=== PATIENT | female | born 1940 | race Caucasian/White ===

== ENCOUNTER 2017-05-05 06:15 | Day surgery (SDC) | payer MEDICARE ==
--- NOTE | 2017-04-27 10:13 | HP ---
CC: Dr. Katy Lantigua * HISTORY AND PHYSICAL: DATE OF PLANNED ADMISSION AND SURGERY: 05/05/17 HISTORY OF PRESENT ILLNESS: Ms. Drew is a 76-year-old white female who is admitted with left ureteral obstruction, status post placement of left ureteral stent for cystoscopy, left retrograde pyelography, and left ureteral stent exchange. Ms. Drew had surgery for abdominal aortic aneurysm and peripheral vascular disease with endovascular placement of an aortic stent and left aortofemoral bypass. She did well from her surgery. 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 She had placement of a left ureteral stent in November 2015 with balloon dilation of the stricture. Following the stent removal, the hydronephrosis caused by the ureteral obstruction recurred and she had another balloon dilation and stent placement about 1 year ago. Following the balloon dilations, the stricture had persisted and the patient had been managed with chronic stent drainage. The stent was last replaced in July 2016 with a 24 cm, 8.5 Bruneian black silicone stent. The patient has done very well and has had no urinary tract infections and has been totally asymptomatic from her stent. Recent renal ultrasound showed no hydronephrosis and the stent in good position. Her recent urine analysis was negative, the urine culture is pending. Her serum creatinine has been stable in the vicinity of 1.7. The patient now is being admitted for elective cystoscopy and left ureteral stent exchange. PAST MEDICAL HISTORY AND SYSTEM REVIEW: She has peripheral vascular disease. She has hypothyroidism, on replacement. She is on metoprolol 25 mg daily and chlorthalidone 25 mg daily. She is diabetic, on glipizide 5 mg daily. She has hyperlipidemia on simvastatin 80 mg daily. She has also a history of osteoporosis and takes alendronate weekly. ALLERGIES: She reports having reaction to OXYCODONE. PHYSICAL EXAMINATION GENERAL: She is a pleasant and rather healthy looking white female. VITAL SIGNS: Blood pressure 110/76, pulse of 70. LUNGS: Clear. HEART: Regular and rhythmic, no murmurs. ABDOMEN: Soft, no masses, no tenderness, and no CVA tenderness. 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 PLAN/RECOMMENDATIONS: Plan is for cystoscopy, left retrograde pyelography, and left ureteral stent exchange. I discussed the above plans with the patient and all her questions were answered. [id number]/[facility] #: [id number] [place]
[~2017-05-05 06:15] MED LIST: Buffered Lidocaine 0.9% SYRIN* 5 ML/SYR SYRINGE INTRADERM ONE; Famotidine IV* 10 MG/ML 2 ML (20 mg) IV ONE; Metoclopramide IV* 5 MG/ML 2 ML VIAL IV SLOW PU ONE; Sodium Citrate/Citric Acid* 15 ML UDC PO ONE
[2017-05-05] MEDS ORDERED: Dexamethasone IV* 4 MG/ML 1 ML (4 MG) IV SLOW PU ONE (06:19)
[2017-05-05] MEDS ORDERED: Metoclopramide IV* 5 MG/ML 2 ML VIAL ONE (06:22)
[2017-05-05] MEDS ORDERED: Sodium Citrate/Citric Acid* 15 ML UDC ONE (06:22)
[2017-05-05] MEDS ORDERED: Dexamethasone IV* 4 MG/ML 1 ML (4 MG) ONE (06:22)
[2017-05-05] MEDS ORDERED: Buffered Lidocaine 0.9% SYRIN* 5 ML/SYR SYRINGE ONE (06:22)
[2017-05-05] MEDS ORDERED: Famotidine IV* 10 MG/ML 2 ML (20 mg) ONE (06:22)
[2017-05-05] MEDS ORDERED: cefTRIAXone VIAL(*) 1,000 MG in NS 0.9% 50 ML* 50 ML IVPB ONE (07:00)
[2017-05-05] MEDS ORDERED: Iohexol 180 (CONTRAST) 10 ML SDV IV ONE (07:09)
[2017-05-05] MEDS ORDERED: Ondansetron INJ* 2 MG/ML VIAL IV PRN (07:36)
[2017-05-05] MEDS ORDERED: fentaNYL* 50 MCG/ML 2 ML VIAL (100 MCG VIAL) IV PRN (07:36)
[2017-05-05] MEDS ORDERED: Chloroprocaine 2%* 20 ML VIAL ONE ×2 (07:42→08:11)
[2017-05-05] MEDS ORDERED: Midazolam* 1 MG/ML 5 ML VIAL (5 MG) ONE (07:42)
[2017-05-05] MEDS ORDERED: EPHEDrine (Pressors)* 50 MG/ML VIAL ONE (08:11)
[2017-05-05] MEDS ORDERED: Phenylephrine IV* 40 MCG/ML 10 ML SYRINGE ONE (08:11)
[2017-05-05 11:11] VITALS: BP 122/57
--- NOTE | 2017-05-05 12:50 | OP ---
CC: Dr. Katy Lantigua * DATE OF OPERATION: 05/05/17 - [facility] DATE OF : 40 SURGEON: Rob Villafana MD ANESTHESIOLOGIST: Dr. Hu Greenwood. ANESTHESIA: Spinal. PRE-OP DIAGNOSES: 1. Left ureteral stricture. 2. Status post placement left ureteral stent. POST-OP DIAGNOSES: 1. Left ureteral stricture. 2. Status post placement left ureteral stent. OPERATIVE PROCEDURES: 1. Cystoscopy. 2. Left retrograde pyelography. 3. Left ureteral stent exchange (black silicon, 8.5 Zimbabwean, 24 cm long). INDICATION FOR PROCEDURE: Mrs. Drew is a 76-year-old white female who developed a stricture of the proximal left ureter secondary to retroperitoneal fibrosis following vascular procedure on the aorta. The stricture was balloon dilated; however, it recurred and she has been managed with chronic ureteral stent. The stent was last replaced about 9 months ago. She has been doing well and recent ultrasound showed no hydronephrosis. The patient is admitted for left ureteral stent exchange. PATHOLOGY: At cystoscopy, the bladder mucosa looked normal. The distal limb of the stent was seen coming from the left orifice. There was slight hyperemia of the bladder mucosa adjacent to the stent. Upon left retrograde pyelography, there was mild fullness of the calyces. DESCRIPTION OF PROCEDURE: After successful spinal anesthesia, the patient was placed in the lithotomy position and was prepped and draped for cystoscopy. Cystoscopy was performed. The bladder was inspected and the above findings were noted. The distal limb of the stent was pulled out to the level of the urethral meatus. A flexible tip guidewire was then passed through the lumen of the stent and positioned in the area of the renal pelvis. The stent was then removed keeping the guidewire in place. Retrograde pyelography was then performed. A black silicon stent, 24 cm long, 8.5 Zimbabwean, was then fed over the guidewire and positioned with the proximal end coiling in the renal pelvis and the distal end coiling inside the bladder. There was good drainage of contrast from the kidney and no extravasation. Patient tolerated the procedure well and left the operating room in good condition. [id number]/[facility] #: [id number] MTDD
--- NOTE | 2017-05-05 18:02 | RAD ---
INDICATION: Left retrograde evaluation stent insertion COMPARISON: None FINDINGS: 0.1 minutes of fluoroscopy were provided for the urology department. Fluoroscopic spot imaging of the abdomen were obtained for operative control and show a retrograde examination correlating placement of a left ureteral stent in expected position . CPT II Codes: 6045F (fluoro time doc)
== END 2017-05-05 11:12 | disposition home or self-care (01) ==
LOC: OR 06:15
PROVIDERS: ATTEND Urology
DX: Z46.6 Encounter for fitting and adjustment of urinary device (principal); N13.5 Crossing vessel and stricture of ureter without hydronephrosis; E11.51 Type 2 diabetes mellitus with diabetic peripheral angiopathy without gangrene; Z79.84 Long term (current) use of oral hypoglycemic drugs; E03.9 Hypothyroidism, unspecified; E78.5 Hyperlipidemia, unspecified; M81.0 Age-related osteoporosis without current pathological fracture; Z88.5 Allergy status to narcotic agent; I10 Essential (primary) hypertension; I25.2 Old myocardial infarction; Z87.891 Personal history of nicotine dependence; E66.9 Obesity, unspecified
CPT/HCPCS: 74420; A9270-GY; C1876; J0696; J1100; J2250; J2400; J2765

== ENCOUNTER → 2017-11-05 08:56 | Day surgery (SDC) | payer MEDICARE ==
--- NOTE | 2017-10-28 07:41 | HP ---
CC: Katy Lantigua MD * HISTORY AND PHYSICAL: DATE OF PLANNED ADMISSION AND SURGERY: 11/05/17 HISTORY OF PRESENT ILLNESS: Ms. Drew is a 77-year-old white female who has chronic left ureteral obstruction, managed with chronic left ureteral stent who is now admitted for cystoscopy and left ureteral stent exchange. Ms. Drew had an abdominal aortic aneurysm and peripheral vascular disease. Following endovascular replacement of an aortic stent, she developed retroperitoneal fibrosis that resulted in obstruction of the proximal left ureter. This resulted in left hydronephrosis and partial atrophy of the left kidney. In November 2015, she underwent cystoscopy, left retrograde, and balloon dilation of the left ureteral stricture and placement of left ureteral stent. The stent was removed 6 weeks later; however, the hydronephrosis recurred and she required placement of another stent. The stent has been replaced periodically about every 6 to 9 months. The stent was last replaced in April 2017. The stent has been well tolerated with no flank pain, no irritative bladder symptoms, no hematuria and no urinary tract infections. The patient is now admitted for left ureteral stent exchange. PAST MEDICAL HISTORY AND SYSTEM REVIEW: She has peripheral vascular disease. She has hypothyroidism, on replacement. She is on one regular aspirin per day. She is hypertensive, on chlorthalidone at 25 mg daily and on potassium chloride supplement and on Toprol 25 mg daily. She has hyperlipidemia, on Zocor 80 mg daily. She is diabetic, on Glucotrol 5 mg daily. ALLERGIES: She reports having intolerance to OXYCODONE. PHYSICAL EXAMINATION GENERAL: A pleasant and healthy looking white female. VITAL SIGNS: Blood pressure 110/70, pulse of 70. LUNGS: Clear. HEART: Regular and rhythmic. No murmurs. ABDOMEN: Soft. No masses, no tenderness. No CVA tenderness. IMPRESSION: Left ureteral stricture secondary to retroperitoneal disease from aortic vascular disease, managed with chronic left ureteral stent. PLAN: Cystoscopy and left ureteral stent exchange. I discussed above plans with the patient and all her questions were answered. [id number]/[facility] #: [id number] MTDD
[~2017-11-05 08:56] MED LIST changes: +Buffered Lidocaine 0.9% SYRIN* 5 ML/SYR SYRINGE ONE; +Dexamethasone IV* 4 MG/ML 1 ML (4 MG) ONE; +Famotidine IV* 10 MG/ML 2 ML (20 mg) ONE; +Iohexol 180 (CONTRAST) 10 ML SDV IV ONE; +KETAMINE HCL* 50 MG/ML 10 ML VIAL ONE; +Lidocaine 2% PF * 5 ML VIAL ONE; -Metoclopramide IV* 5 MG/ML 2 ML VIAL IV SLOW PU ONE; +Metoclopramide TAB* 10 MG ONE; +Metoclopramide TAB* 10 MG PO ONE; +Midazolam* 1 MG/ML 10 ML VIAL (10 MG) ONE; +Naloxone* 0.4 MG/ML 1 ML VIAL IV PRN; +Ondansetron INJ* 2 MG/ML VIAL IV PRN; +Ondansetron INJ* 2 MG/ML VIAL ONE; +Propofol* 10 MG/ML 20 ML BTL IV PUSH ONE; -Sodium Citrate/Citric Acid* 15 ML UDC PO ONE; +cefTRIAXone(*) 1 GM ADVAN/BAG ONE; +cefTRIAXone(*) 1 GM in D5W 50 ML BAG* 50 ML IVPB ONE; +fentaNYL* 50 MCG/ML 2 ML VIAL (100 MCG VIAL) IV PRN; +fentaNYL* 50 MCG/ML 2 ML VIAL (100 MCG VIAL) ONE
[2017-11-05 11:53] VITALS: BP 130/64
--- NOTE | 2017-11-05 12:15 | RAD ---
INDICATION: Left ureteral stent exchange. COMPARISON: Correlation is made with a prior study from May 05, 2017. TECHNIQUE: 10 seconds of intermittent fluoroscopic guidance were provided and 4 spot films of the abdomen were centered on the left side. FINDINGS: There is partial opacification of the left renal collecting system. Subsequently there is placement of a double-J stent catheter on the left side which demonstrates normal course. IMPRESSION: INTRAOPERATIVE CONTROL FILMS. CPT II Codes: 6045F
--- NOTE | 2017-11-06 02:11 | OP ---
CC: Dr. Katy Lantigua OPERATIVE REPORT: DATE OF OPERATION: 11/05/17 DATE OF : 40 SURGEON: Rob Villafana MD ANESTHESIOLOGIST: Sedrick Duckworth MD ANESTHESIA: IV sedation with MAC. PRE-OP DIAGNOSES: 1. Left ureteral stricture. 2. Status post placement of left ureteral stent. POST-OP DIAGNOSES: 1. Left ureteral stricture. 2. Status post placement, left ureteral stent. OPERATIVE PROCEDURE: 1. Left retrograde pyelography. 2. Left ureteral stent exchange. INDICATIONS: Ms. Drew is a 77-year-old white female, who developed left retroperitoneal fibrosis following aortic vascular surgery that resulted in a chronic left ureteral obstruction and stricture. She developed partial atrophy of the left kidney. She had been managed with chronic left ureteral stent and her renal function has been stable. The stent was last replaced 6 months ago. She is now admitted for elective stent exchange. Her preoperative urine culture was negative. PATHOLOGY AT CYSTOSCOPY: The bladder mucosa looked normal. The distal limb of the stent was seen coming from the left ureteral orifice. The rest of the bladder looked normal. No suspicious bladder lesions were seen. Upon left retrograde pyelography, there was no hydronephrosis noted. DESCRIPTION OF PROCEDURE: With the patient in the dorsal lithotomy position, under intravenous sedation with anesthesia monitoring, the patient was prepped and draped for cystoscopy. Cystoscopy was performed. The bladder was inspected. The distal limb of the stent was pulled out to the level of the meatus. A flexible- tipped guidewire was introduced through the lumen of the stent and positioned in the area of the renal pelvis. Retrograde pyelography was then performed. A black silicone stent, 8.5-Romanian, 24-cm long was then placed with the proximal end coiling in the renal pelvis and the distal end coiling inside the bladder. There was good drainage of contrast from the kidney and no extravasation. The patient tolerated the procedure well and left the operating room in good condition. The plan is to keep the stent on a chronic basis and to replace it in another 6 months. [id number]/[facility] #: [id number] MTDD
== END | disposition home or self-care (01) ==
LOC: OR 08:56
PROVIDERS: ATTEND Urology
DX: N13.5 Crossing vessel and stricture of ureter without hydronephrosis (principal); I73.9 Peripheral vascular disease, unspecified; I10 Essential (primary) hypertension; E78.5 Hyperlipidemia, unspecified; Z79.82 Long term (current) use of aspirin; I77.89 Other specified disorders of arteries and arterioles; I25.10 Atherosclerotic heart disease of native coronary artery without angina pectoris; I25.2 Old myocardial infarction; Z95.5 Presence of coronary angioplasty implant and graft; E11.9 Type 2 diabetes mellitus without complications
CPT/HCPCS: 74420; A9270-GY; C1876; J0696; J1100; J2250; J2405; J2704; J3010

== ENCOUNTER → 2019-05-31 05:34 | Day surgery (SDC) | payer MEDICARE ==
--- NOTE | 2019-05-26 09:30 | HP ---
CC: Dr. Katy Avalos HISTORY AND PHYSICAL: DATE OF PLANNED ADMISSION/SURGERY: 05/31/19 HISTORY OF PRESENT ILLNESS: Ms. Drew is a 78-year-old white female with a chronic left ureteral stricture, decreased left renal function, chronic left ureteral stent drainage for cystoscopy and left ureteral stent exchange. Ms. Drew developed left hydronephrosis secondary to a stricture of the proximal ureter. The stricture was secondary to retroperitoneal fibrosis from her vascular disease. She also developed partial atrophy of her kidney. The ureteral stricture has been managed with left ureteral stent drainage. The stent has been replaced periodically, and it was last replaced in July 2018. She has done well guerra and has had no episodes or flank pain or urinary tract infections. Considering the stent has been in place for 10 months, she is now admitted for left ureteral stent exchange. PAST MEDICAL HISTORY AND SYSTEM REVIEW: The patient has history of coronary artery disease, hypertension, hyperlipidemia, diabetes mellitus, carotid artery stenosis. She is maintained on 1 baby aspirin a day, chlorthalidone 50 mg daily , glipizide 5 mg twice a day, Januvia 50 mg daily, metoprolol 25 mg daily, simvastatin 80 mg daily, levothyroxine 25 mcg daily. She reports being intolerant to OXYCODONE. 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 She had been followed and managed conservatively by the vascular surgery service out [facility]. In preparation for this procedure, the patient was seen by Dr. Yue Mares, vascular surgeon, who evaluated her. The patient was again noted to have total occlusion of the right carotid artery and just under 80% occlusion of the left carotid artery. The patient is asymptomatic and the decision was made to continue with conservative management. I discussed her carotid disease with Dr Mares, vascular surgeon who saw her recently. Dr. Mares felt that it is relatively safe to proceed with the planned left ureteral stent exchange as long as hypotension is avoided during the procedure. I am including a copy of her recent consult note with the patient's records PHYSICAL EXAMINATION GENERAL: She is a pleasant white female who looks her age. VITAL SIGNS: Blood pressure 120/60, pulse of 78. LUNGS: Clear. HEART: Regular and rhythmic. No murmurs. ABDOMEN: Soft. No tenderness and no CVA tenderness. LAB DATA: Urinalysis in the office was positive for glucose, negative otherwise. IMPRESSION: 1. Chronic left ureteral stricture, managed by chronic left ureteral stent drainage. 2. Diabetes mellitus. 3. Coronary artery disease. 4. Bilateral Carotid artery disease, total occlusion of the Rt and 70 to 80 % occlusion of the left. PLAN: Cystoscopy and left ureteral stent exchange. I discussed the above plans with the patient and her partner and all their questions were answered. [id number]/[facility] #: [id number] MTDD
[~2019-05-31 05:34] MED LIST changes: -Buffered Lidocaine 0.9% SYRIN* 5 ML/SYR SYRINGE INTRADERM ONE; -Buffered Lidocaine 0.9% SYRIN* 5 ML/SYR SYRINGE ONE; +Buffered Lidocaine 1% SYRIN* 1 ML/SYRINGE INTRADERM ONE; -Dexamethasone IV* 4 MG/ML 1 ML (4 MG) ONE; -Famotidine IV* 10 MG/ML 2 ML (20 mg) IV ONE; -Famotidine IV* 10 MG/ML 2 ML (20 mg) ONE; -KETAMINE HCL* 50 MG/ML 10 ML VIAL ONE; +Lactated Ringers 1000 ML Bag* 1,000 ML IV SCH; -Lidocaine 2% PF * 5 ML VIAL ONE; -Metoclopramide TAB* 10 MG ONE; -Metoclopramide TAB* 10 MG PO ONE; -Midazolam* 1 MG/ML 10 ML VIAL (10 MG) ONE; +Midazolam* 1 MG/ML 2 ML VIAL (2 MG) ONE; -Ondansetron INJ* 2 MG/ML VIAL IV PRN; -Ondansetron INJ* 2 MG/ML VIAL ONE; -Propofol* 10 MG/ML 20 ML BTL IV PUSH ONE; +Propofol* 10 MG/ML 20 ML BTL ONE; -cefTRIAXone(*) 1 GM in D5W 50 ML BAG* 50 ML IVPB ONE; -fentaNYL* 50 MCG/ML 2 ML VIAL (100 MCG VIAL) IV PRN
[2019-05-31 09:05] VITALS: BP 134/58
--- NOTE | 2019-05-31 10:03 | OP ---
CC: Dr. Katy Lantigua * DATE OF OPERATION: 05/30/19 - [facility] DATE OF : 40 SURGEON: Rob Villafana MD. ANESTHESIOLOGIST: Dr. Johnathon Joe. ANESTHESIA: IV sedation with MAC. PRE-OP DIAGNOSES: 1. Proximal left ureteral stricture. 2. Status post placement of left ureteral stent. POST-OP DIAGNOSES: 1. Proximal left ureteral stricture. 2. Status post placement of left ureteral stent. OPERATIVE PROCEDURES: 1. Cystoscopy. 2. Left retrograde pyelography. 3. Left ureteral stent exchange (black silicone, 24 cm, 8.5-Macedonian). INDICATION FOR PROCEDURE: Ms. Rendon is a 78-year-old white female who developed proximal left ureteral stricture secondary to retroperitoneal fibrosis from vascular disease. She has been successfully managed with chronic ureteral stent drainage and the stent was last replaced 10 months ago. Preoperative urine culture was negative. The patient is being brought in for elective left ureteral stent exchange. PATHOLOGY: At cystoscopy, the bladder mucosa looked normal. There was the expected edema and hyperemia of the left trigone where the distal limb of the stent was noted. Upon left retrograde pyelography, again was noted proximal left ureteral stricture. There was, however, no hydronephrosis noted. DESCRIPTION OF PROCEDURE: Under intravenous sedation with anesthesia monitoring , the patient was placed in the lithotomy position and was prepped and draped for cystoscopy. Cystoscopy was performed. The bladder was inspected and the above findings were noted. The distal limb of the left ureteral stent was pulled out to the level of the urethral meatus. A flexible tip guidewire was introduced through the lumen of the stent and positioned in the area of the renal pelvis. The stent was then removed keeping the guidewire in place. A size 5-Macedonian open-ended catheter was fed on top of the guidewire and positioned in the proximal ureter, and retrograde pyelography was performed demonstrating the above pathology. A black silicone stent, 8.5-Macedonian, 24 cm long was then placed with the proximal end coiling in the renal pelvis and the distal end coiling inside the bladder. There was good drainage of contrast from the kidney and no extravasation. The procedure was performed with fluoroscopy guidance. The bladder was then emptied and the cystoscope was removed. The patient tolerated the procedure well and left the operating room in good condition. [id number]/[facility] #: [id number] [facility]ITAL[facility]
== END | disposition home or self-care (01) ==
LOC: OR 05:34
PROVIDERS: ATTEND Urology
DX: N13.5 Crossing vessel and stricture of ureter without hydronephrosis (principal); I25.10 Atherosclerotic heart disease of native coronary artery without angina pectoris; I10 Essential (primary) hypertension; E78.5 Hyperlipidemia, unspecified; E11.9 Type 2 diabetes mellitus without complications; Z79.84 Long term (current) use of oral hypoglycemic drugs; I65.29 Occlusion and stenosis of unspecified carotid artery; E03.9 Hypothyroidism, unspecified
CPT/HCPCS: 74420; C1876; J0696; J2250; J2704; J3010

== ENCOUNTER 2019-09-14 03:44 | Inpatient (IN) | payer MEDICARE ==
[2019-09-14 04:24] LABS: ABS Monocytes 0.5 10^3/ul (0-0.8); Eosinophil % 0.4 %; Hematocrit 38 % (35-47); Hemoglobin 12.5 g/dL (12.0-16.0); Lymphocyte % 17.4 %; Mean Corpuscular HGB Conc 33 g/dL (31-36); Mean Corpuscular Hemoglobin 30 pg (27-31); Mean Corpuscular Volume 92 fL (80-97); Mean Platelet Volume 8.2 fL (7.4-10.4); Nucleated Red Blood Cells % 0.2; Platelet Count 153 10^3/uL (150-450); Red Cell Distribution Width 15 % (10-15); White Blood Count 5.5 10^3/uL (3.5-10.8)
[2019-09-14 04:32] LABS: INR 1.17 (0.82-1.09)
--- NOTE | 2019-09-14 04:34 | ED ---
Respiratory - HPI Summary HPI Summary: This patient is a 79 year old female brought in by EMS with a Hx of diabetes, HTN, HLD accompanied by her and daughter presenting to [facility] with a chief complaint of SOB and cough since one week ago. She states she had a fever this morning of 102 F. She did not take any medications for it. She denies chest pain, N/V, dysuria. She denies Hx of COPD. She reports diarrhea. Her states he was sick with similar symptoms recently. EMS administered Decadron en route. - History of Current Complaint Stated Complaint: GENERAL ILLNESS PER EMS Time Seen by Provider: 09/14/19 03:45 Hx Obtained From: Patient Onset/Duration: Lasting Days Pain Intensity: 0 - Allergy/Home Medications Allergies/Adverse Reactions: Allergies Allergy/AdvReac Type Severity Reaction Status Date / Time hydrocodone Allergy Severe Rash Verified 09/14/19 04:11 Home Medications: Home Medications Alendronate Sodium [Alendronate Sodium-] 70 mg PO WEEKLY 09/14/19 [History Confirmed 09/14/19] PMH/Surg Hx/FS Hx/Imm Hx Endocrine/Hematology History: Reports: Hx Diabetes - TYPE 2, Hx Thyroid Disease - HYPOTHYROIDISM Cardiovascular History: Reports: Hx Coronary Artery Disease - CHOLESTEROL CONTROL WITH MEDS, Hx Hypertension - CONTROL WITH MEDS, Hx Peripheral Vascular Disease, Other Cardiovascular Problems/Disorders - ABDOMINAL AORTIC ANEURYSM WITH AORTOFEMORAL BYPASS ON LEFT 2013 Denies: Hx Pacemaker/ICD Respiratory History: Denies: Other Respiratory Problems/Disorders GI History: Denies: Other GI Disorders History: Reports: Hx Kidney Stones, Hx Renal Disease - LT URETERAL STRICTURE , Other Problems/Disorders - LEFT HYDRONEPHROSIS Musculoskeletal History: Reports: Hx Arthritis - HANDS, Other Musculoskeletal History - OSTEOPOROSIS, COMPRESSION FX L3 08/2016 Denies: Hx Osteoporosis Sensory History: Reports: Hx Contacts or Glasses - GLASSES Denies: Hx Hearing Aid Opthamlomology History: Reports: Hx Contacts or Glasses - GLASSES Neurological History: Denies: Other Neuro Impairments/Disorders Psychiatric History: Denies: Hx Panic Disorder - Cancer History Hx Chemotherapy: No - Surgical History Surgery Procedure, Year, and Place: artery by pass surgery 2013, [place]. hysterectomy. cardiac catheterization with [address] 2006-[facility] IN OUR MRI FILE UP TO 3T-PT WILL BRING CARD WITH HER. LEFT URETERAL STENT, 09/2015, [facility] [place]. Aortic bypass Hx Anesthesia Reactions: No Infectious Disease History: No Infectious Disease History: Denies: Traveled Outside the [place] in Last 30 Days - Family History Known Family History: Negative: Hypertension - Social History Alcohol Use: Daily Alcohol Amount: 1 A DAY Substance Use Type: Reports: None Smoking Status (MU): Former Smoker Type: Cigarettes Amount Used/How Often: 1 PPD ABOUT 33 YEARS Length of Time of Smoking/Using Tobacco: ABOUT 33 YEARS Have You Smoked in the Last Year: No Review of Systems - ROS Summary Review of Systems Summary: Metoprolol Succinate [Toprol Xl] 25 mg PO QAM 11/20/15 [History Confirmed ] Simvastatin (NF) [Zocor (NF)] 80 mg PO BEDTIME 11/20/15 [History Confirmed 09/14] glipiZIDE TAB* [Glucotrol TAB*] 2 tab PO BID 07/17/16 [History Confirmed ] Potassium Chloride [K-Tab] 2 tab PO QAM 04/26/17 [History Confirmed 09/14/19] Aspirin 81 mg CHEW TAB* [Aspirin Low Dose TAB*] 81 mg PO QAM 11/02/17 [History Confirmed 09/14/19] Cholecalciferol TAB* [Vitamin D TAB*] 1,000 unit PO QAM 11/02/17 [History Confirmed 09/14/19] Levothyroxine TAB* [Synthroid TAB*] 25 mcg PO QAM 11/02/17 [History Confirmed ] Cinnamon Bark [Cinnamon] 1,000 mg PO BID 05/27/18 [History Confirmed 09/14/19] Sitagliptin Phosphate [Januvia] 50 mg PO QAM 05/26/19 [History Confirmed ] Alendronate Sodium [Alendronate Sodium-] 70 mg PO WEEKLY 09/14/19 [History Confirmed 09/14/19] Positive: Fever Negative: Chest Pain Positive: Shortness Of Breath, Cough Positive: Diarrhea. Negative: Vomiting, Nausea All Other Systems Reviewed And Are Negative: Yes Physical Exam - Summary Physical Exam Summary: General: Obese female, mild respiratory discomfort with tachypnea. HEENT: Normocephalic, Atraumatic. Eyes: Conjuctiva normal, PERRL. Oropharynx: Clear, mucous membranes moist, (-) exudates. Neck: Soft, FROM, (-) lymphadenopathy, (-) thyromegaly, (-) JVD. Cardiovascular: Normal sinus rhythm, (-) murmur. Lungs: Tight wheezing throughout. (-) rales, Ronchi right lower lobe. Abdomen: Soft, non-tender, non-distended, (-) organomegaly, normal bowel sounds. Back: (-) CVA tenderness Extremities: Trace edema in the lower extremities. Skin: Warm, dry, (-) rash. Neuro: Alert and oriented x3, no focal deficits. Psychiatric: Mood normal, affect normal. Triage Information Reviewed: Yes Vital Signs On Initial Exam: Initial Vitals Temp Pulse Resp BP Pulse Ox 99.9 F 96 27 131/80 90 09/14/19 03:48 09/14/19 03:48 09/14/19 03:48 09/14/19 03:48 09/14/19 03:48 Vital Signs Reviewed: Yes Procedures - Sedation Patient Received Moderate/Deep Sedation with Procedure: No Diagnostics - Vital Signs Vital Signs Temp Pulse Resp BP Pulse Ox 09/14/19 04:12 95 25 94 09/14/19 03:51 19 131/80 09/14/19 03:48 99.9 F 96 27 131/80 90 - Laboratory Lab Results: Lab Results 09/14/19 Range/Units 04:13 WBC 5.5 (3.5-10.8) 10^3/uL RBC 4.10 (3.70-4.87) 10^6 /uL Hgb 12.5 (12.0-16.0) g/dL Hct 38 (35-47) % MCV 92 (80-97) fL MCH 30 (27-31) pg MCHC 33 (31-36) g/dL RDW 15 (10-15) % Plt Count 153 (150-450) 10^3/uL MPV 8.2 (7.4-10.4) fL Neut % (Auto) 73.1 % Lymph % (Auto) 17.4 % [place] % (Auto) 8.7 % Eos % (Auto) 0.4 % Baso % (Auto) 0.4 % Absolute Neuts (auto) 4.0 (1.5-7.7) 10^3/ul Absolute Lymphs (auto) 1.0 (1.0-4.8) 10^3/ul Absolute Monos (auto) 0.5 (0-0.8) 10^3/ul Absolute Eos (auto) 0.0 (0-0.6) 10^3/ul Absolute Basos (auto) 0.0 (0-0.2) 10^3/ul Absolute Nucleated RBC 0.0 10^3/ul Nucleated RBC % 0.2 Result Diagrams: 09/14/19 04:13 09/14/19 04:13 Lab Statement: Any lab studies that have been ordered have been reviewed, and results considered in the medical decision making process. - Radiology CXR Radiology Interpretation Completed By: ED Physician Summary of Radiographic Findings: Right lower lobe pneumonia. Pending official radiologist report. - EKG 0416 Cardiac Rate: NL - 95 BPM EKG Rhythm: Sinus Rhythm Summary of EKG Findings: No STEMI. ED Physician has reviewed and intepreted this EKG. Disposition - Course Course Of Treatment: 79 year old female presents from home by ambulance for cough and sob. she has been coughing for one week. non productive. febrile yesterday to 102. cough worsened overnight. no chest pain. patient reported as hypoxic at 72% by EMS upon their arrival. RLL rhonchi, CXR c/w pneumonia. started on rocephin and azithromycin. still hypoxic on room air after 3 duonebs and decadron. patient referred to hospitalist for admission. - Diagnoses Provider Diagnoses: Right lower lobe pneumonia, Hypoxia Discharge ED - Sign-Out/Discharge Documenting (check all that apply): Patient Departure - Admission, accepted by Hospitalist - Discharge Plan Condition: Stable Disposition: ADMITTED TO [facility] Referrals: Katy Lantigua MD [Primary Care Provider] - - Billing Disposition and Condition Condition: STABLE Disposition: Admitted to [facility] - Attestation Statements Document Initiated by Scribe: Yes Documenting Scribe: Girma Rick Provider For Whom Tia is Documenting (Include Credential): Laquita Garcia MD Scribe Attestation: Girma Carreno, scribed for Laquita Garcia MD on 09/14/19 at 0620. Scribe Documentation Reviewed: Yes Provider Attestation: The documentation as recorded by the Girma hooker accurately reflects the service I personally performed and the decisions made by , Laquita Garcia MD Status of Scribe Document: Viewed
[2019-09-14 04:40] LABS: Albumin 4.3 g/dL (3.2-5.2); Albumin/Globulin Ratio 1.2 (1-3); BUN/Creatinine Ratio 21.5 (8-20); C Reactive Protein 13.47 mg/L (<8.01); Calcium 9.3 mg/dL (8.6-10.3); EGFR African American 29.9 (>60); EGFR Non-African American 24.7 (>60); Globulin 3.6 g/dL (2-4); Potassium 4.4 mmol/L (3.5-5.0); Total Bilirubin 0.3 mg/dL (0.2-1.0); Total Protein 7.9 g/dL (6.4-8.9)
[2019-09-14 04:42] LABS: Troponin I 0.01 ng/mL (<0.03)
[2019-09-14] MEDS ORDERED: Albuterol/Ipratropium NEB.SOL* Albuterol 2.5 MG/Ipratropium 0.5 MG 3 ML INH ONE ×2 (04:44→05:33)
[2019-09-14] MEDS ORDERED: cefTRIAXone(*) 2 GM in NS 0.9% 100 ML* 100 ML IVPB ONE (05:02)
[2019-09-14] MEDS ORDERED: Azithromycin 500 mg/250 ml NS 500 MG/250 ML BAG IVPB ONE (05:03)
[2019-09-14] MEDS ORDERED: Albuterol/Ipratropium NEB.SOL* Albuterol 2.5 MG/Ipratropium 0.5 MG 3 ML ONE (05:37)
[2019-09-14 07:43] LABS: Influenza A Molecular NEGATIVE (Negative); Influenza B Molecular NEGATIVE (Negative)
[2019-09-14] MEDS ORDERED: Albuterol/Ipratropium NEB.SOL* Albuterol 2.5 MG/Ipratropium 0.5 MG 3 ML INH PRN (08:00)
[2019-09-14] MEDS ORDERED: Acetaminophen TAB* 325 MG PO PRN (08:03)
[2019-09-14] MEDS ORDERED: Ondansetron INJ* 2 MG/ML VIAL IV PRN (08:03)
[2019-09-14] MEDS ORDERED: NS 0.9% 1000 ML** 400 ML IV ONE (08:15)
--- NOTE | 2019-09-14 10:15 | HP ---
CC: Dr. Katy Lantigua* ADMISSION HISTORY AND PHYSICAL: DATE OF ADMISSION: 09/14/19 PRIMARY CARE PROVIDER: Dr. Katy Lantigua. HEALTHCARE PROXY: Boyfrienphu Hollingsworth. CODE STATUS: DNR/DNI. I discussed with patient, daughter, and her boyfriend Edel. History obtained from interview with the patient, her boyfriend, and her daughter. Reliability is very good. CHIEF COMPLAINT: Shortness of breath for 1 week and fever this morning. HISTORY OF PRESENT ILLNESS: This is a 79-year-old female who has been in her usual state of health until approximately 7 days prior to presentation, started to develop nonproductive cough. The cough is not associated with any myalgias, sore throat, or shortness of breath at first, but was associated with rhinorrhea as well as diarrhea for 1 day that occurred several days prior, but no pain, particularly no pain in her abdomen. Over the last week, she has also noticed decreased oral intake and the development of shortness of breath 2 days prior to presentation. She characterizes her shortness of breath as she was previously able to walk to her mailbox; however, for the last 2 days she was unable to walk to her mailbox. Her boyfriend was present, has also been sick with similar symptoms that occurred approximately 2 to 3 weeks prior to presentation; however, he did not have any fevers. This morning, she was noted to be more fatigued and weak, sitting on the edge of the bed and her boyfriend Edel checked on her, felt her forehead, thought it was very hot, checked her temperature twice orally and it was 102.5. She previously had not noticed any subjective fevers, shaking chills, or rigors. Because of the new onset of fevers and her change in clinical status where she was more fatigued and weak, they proceeded to the emergency room. In the emergency room, she was noted to be 83% on room air. She was treated with 3 rounds of DuoNeb, given antibiotics , and the hospitalist service was consulted for admission. PAST MEDICAL HISTORY: Includes left ureteral stricture, CAD with 2 stents placed in 2006, hypertension, hyperlipidemia, type 2 diabetes, hypothyroidism, bilateral carotid artery disease, peripheral vascular disease, chronic kidney disease. HOME MEDICATIONS: Review from the patient's list includes: 1. Alendronate 70 mg weekly. 2. Januvia 50 mg daily. 3. Simvastatin 80 mg daily. 4. Metoprolol 25 mg daily. 5. Potassium chloride 20 mEq daily. 6. Chlorthalidone 50 mg daily. 7. Aspirin 81 mg daily. 8. Glipizide 10 mg twice daily. 9. Levothyroxine 25 mcg daily. 10. Cinnamon 2000 mg twice daily. 11. Vitamin D 1 daily. ALLERGIES: HYDROCODONE. FAMILY HISTORY: No family history of lung disease. Father has CAD and type 1 diabetes. SOCIAL HISTORY: Lives with her friend, I believe this is her boyfriend. Ambulates unassisted. Thirty pack year smoking history, quit in 1990. Drinks approximately 1 alcoholic drink per day, but not every day. 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 REVIEW OF SYSTEMS: As per HPI includes diarrhea, cough, shortness of breath, rhinorrhea, and anorexia. All other systems reviewed and negative. PHYSICAL EXAMINATION GENERAL: Sitting on the edge of the bed, breathing comfortably, talks in full sentences, in no apparent distress. VITAL SIGNS: In the emergency room 130/75, heart rate ranging 96 to 110. Respiratory rates between 19 and 30, although 30 is an outlier. She was 92% on 2 L when seen by this author. T-max 99.9. HEENT: Oropharynx is clear. She has moist mucous membranes. Sclerae are anicteric. LUNGS: Her lungs have decreased breath sounds throughout. She has faint rales in bilateral bases extending up one half all the way to the apex to her apices. She has faint end expiratory wheezes bilateral lobes throughout. HEART: Heart rate is regular, but tachycardic. Difficult to appreciate any murmurs. ABDOMEN: Soft, nontender, nondistended. EXTREMITIES: Warm and well perfused. She has no clubbing, cyanosis, or edema. She has less than 2-second cap refill on her fingers. NEUROLOGIC: She is alert and oriented x3. She has a mild left facial droop at her mouth, which she and her daughter note is not new, otherwise cranial nerves II through XII are intact. PSYCH: She has no apparent anxiety, agitation, or depression. IMAGING STUDIES/LAB DATA: Labs reviewed notable for BUN 42, creatinine 1.95, glucose 231, lactic acid 1.1, CRP is 13.4, BNP is 31. White blood cell count is 5.5, hemoglobin 12.5, platelets 153. She is negative for influenza A and B. Data reviewed: Chest x-ray: No active cardiopulmonary disease. EKG: Sinus tachycardia, normal axis, normal intervals, good R-wave progression. No T-wave abnormalities. No ST abnormalities. ASSESSMENT AND PLAN: This is 79-year-old female with past medical history as outlined above including coronary artery disease, type 2 diabetes, chronic kidney disease, presenting with 1-week cough punctuated by weakness and fever, and hypoxic respiratory failure. 1. Hypoxic respiratory failure. I suspect in the setting of viral pneumonia. Suspect viral pneumonia in the setting of recent contact with her boyfriend with similar symptoms, diffuse nature on clinical exam and absence of consolidation on chest x-ray in the setting of her fever and age, we will opt for antibiotics, to continue tomorrow although can target a short course if improves. She will require hospital stay, supportive care including oxygen as well as fluid resuscitation given her mild acute on kidney failure. Doubt bacterial pneumonia and I will check strep or legionella urine antigen at this point. 2. Type 2 diabetes. Continue home medications including glipizide and Januvia. Fingersticks have been elevated in the setting of her illness at home. 3. Coronary artery disease. Continue aspirin, metoprolol. 4. Hyperlipidemia. Continue simvastatin. 5. Hypothyroidism. Continue levothyroxine. 6. Acute on chronic kidney disease. 1 L fluid slowly. 7. DVT prophylaxis: Heparin subcu. CODE STATUS: DNR/DNI discussed with the patient, boyfriend, and daughter. Filled out MOLST, placed in chart. [id number]/CPS #: [id number] [facility]
[2019-09-14] MEDS: Cholecalciferol TAB* 1000 UNITS PO SCH (10:39)
[2019-09-14] MEDS: Potassium Chlor TAB* 20 MEQ TAB.ER PO SCH (10:39)
[2019-09-14] MEDS: Metoprolol Succinate XL TAB* 25 MG PO SCH (10:39)
[2019-09-14] MEDS: Aspirin 81 mg CHEW TAB* 81 MG TAB.CHEW PO SCH (10:39)
[2019-09-14] MEDS: glipiZIDE TAB* 5 MG PO SCH ×2 (10:39→21:33)
[2019-09-14] MEDS: SITAGLIPTIN 50 MG PO SCH (10:40)
[2019-09-14] MEDS: Levothyroxine TAB* 25 MCG TAB PO SCH (10:42)
[2019-09-14] MEDS: Heparin VIAL(*) 5000 UNITS/ML VIAL (FIVE THOUSAND) SUBCUT SCH ×2 (14:40→21:33)
[2019-09-14] MEDS: Atorvastatin* 40 MG TAB PO SCH (21:33)
[2019-09-15] MEDS: cefTRIAXone(*) 1 GM in NS 0.9% 50 ML* 50 ML IVPB SCH (05:52)
[2019-09-15] MEDS: Levothyroxine TAB* 25 MCG TAB PO SCH (05:52)
[2019-09-15] MEDS: Heparin VIAL(*) 5000 UNITS/ML VIAL (FIVE THOUSAND) SUBCUT SCH ×3 (05:52→21:08)
[2019-09-15] MEDS: Aspirin 81 mg CHEW TAB* 81 MG TAB.CHEW PO SCH (08:21)
[2019-09-15] MEDS: Cholecalciferol TAB* 1000 UNITS PO SCH (08:24)
[2019-09-15] MEDS: glipiZIDE TAB* 5 MG PO SCH ×2 (08:24→21:07)
[2019-09-15] MEDS: Metoprolol Succinate XL TAB* 25 MG PO SCH (08:24)
[2019-09-15] MEDS: Azithromycin TAB* 250 MG PO SCH (08:25)
[2019-09-15] MEDS: Potassium Chlor TAB* 20 MEQ TAB.ER PO SCH (08:26)
[2019-09-15] MEDS: SITAGLIPTIN 50 MG PO SCH (08:28)
[2019-09-15] MEDS ORDERED: Dextrose 50% VIAL 50 ml IV PUSH PRN (09:57)
--- NOTE | 2019-09-15 10:11 | PN ---
Subjective Date of Service: 09/15/19 Interval History: Seen sitting up at edge of bed. Denies difficulty breathing, shortness of breath , chest pain, abdominal pain, nausea, vomiting. States she feels better than yesterday. On 2L oxygen via nasal cannula, denies dyspnea with ambulation to bathroom. Family History: Unchanged from Admission Social History: Unchanged from Admission Past Medical History: Unchanged from Admission Objective Active Medications: Acetaminophen (Tylenol Tab*) 650 mg PO Q4H PRN PRN Reason: PAIN-MILD/TEMP >/= 100.4 Albuterol/Ipratropium (Duoneb (Albuterol 2.5 Mg/Ipratropium 0.5 Mg)) 1 neb INH Q4H PRN PRN Reason: SOB/WHEEZING Aspirin (Aspirin 81 Mg Chew Tab*) 81 mg PO QAM [facility] Last Admin: 09/15/19 08:21 Dose: 81 mg Atorvastatin Calcium (Lipitor*) 40 mg PO BEDTIME [facility] Last Admin: 09/14/19 21:33 Dose: 40 mg Azithromycin (Zithromax Tab*) 250 mg PO DAILY [facility] Last Admin: 09/15/19 08:25 Dose: 250 mg Cholecalciferol (Vitamin D Tab*) 1,000 units PO QAM [facility] Last Admin: 09/15/19 08:24 Dose: 1,000 units Dextrose (Dextrose 50% Vial 50 Ml*) 25 ml IV PUSH .FOR FS < 60 - SS PRN PRN Reason: FS < 60 Glipizide (Glucotrol Tab*) 10 mg PO BID [facility] Last Admin: 09/15/19 08:24 Dose: 10 mg Heparin Sodium (Porcine) (Heparin Vial(*)) 5,000 units SUBCUT Q8HR [facility] Last Admin: 09/15/19 05:52 Dose: 5,000 units Ceftriaxone Sodium 1 gm/ (Sodium Chloride) 50 mls @ 100 mls/hr IVPB Q24H [facility] Last Admin: 09/15/19 05:52 Dose: 100 mls/hr Insulin Human Lispro (Humalog*) 0 units SUBCUT ACHS [facility]; Protocol Levothyroxine Sodium (Synthroid Tab*) 25 mcg PO QAM@0600 [facility] Last Admin: 09/15/19 05:52 Dose: 25 mcg Metoprolol Succinate (Toprol Xl Tab*) 25 mg PO QAM [facility] Last Admin: 09/15/19 08:24 Dose: 25 mg Ondansetron HCl (Zofran Inj*) 4 mg IV Q4H PRN PRN Reason: NAUSEA/VOMITING Potassium Chloride (Klor Con Er Tab*) 40 meq PO QAM [facility] Last Admin: 09/15/19 08:26 Dose: 40 meq Sitagliptin Phosphate (Januvia (Nf)) 50 mg PO QAM [facility]; Protocol Last Admin: 09/15/19 08:28 Dose: Not Given Vital Signs - 8 hr 09/15/19 09/15/19 03:15 07:22 Temperature 97.4 F 97.8 F Pulse Rate 77 68 Respiratory 18 18 Rate Blood Pressure 116/62 125/58 (mmHg) O2 Sat by Pulse 98 99 Oximetry Oxygen Devices in Use Now: Nasal Cannula - 2L Appearance: This is a well developed older woman seen sitting up at the edge of her bed in no acute distress. Eyes: No Scleral Icterus, PERRLA Ears/Nose/Mouth/Throat: NL Teeth, Lips, Gums, Clear Oropharnyx, Mucous Membranes Moist Neck: NL Appearance and Movements; NL JVP, Trachea Midline Respiratory: Symmetrical Chest Expansion and Respiratory Effort, - - Expiratory wheezes throughout Cardiovascular: NL Sounds; No Murmurs; No JVD, RRR, No Edema Abdominal: NL Sounds; No Tenderness; No Distention Lymphatic: No Cervical Adenopathy Extremities: No Edema, No Clubbing, Cyanosis Skin: No Rash or Ulcers, No Nodules or Sclerosis Neurological: Alert and Oriented x 3 Lines/Tubes/Other Access: Clean, Dry and Intact Peripheral IV Result Diagrams: 09/14/19 04:13 09/14/19 04:13 Additional Lab and Data: Lab Results 09/14/19 Range/Units 04:13 WBC 5.5 (3.5-10.8) 10^3/uL RBC 4.10 (3.70-4.87) 10^6 /uL Hgb 12.5 (12.0-16.0) g/dL Hct 38 (35-47) % MCV 92 (80-97) fL MCH 30 (27-31) pg MCHC 33 (31-36) g/dL RDW 15 (10-15) % Plt Count 153 (150-450) 10^3/uL MPV 8.2 (7.4-10.4) fL Neut % (Auto) 73.1 % Lymph % (Auto) 17.4 % Dickson % (Auto) 8.7 % Eos % (Auto) 0.4 % Baso % (Auto) 0.4 % Absolute Neuts (auto) 4.0 (1.5-7.7) 10^3/ul Absolute Lymphs (auto) 1.0 (1.0-4.8) 10^3/ul Absolute Monos (auto) 0.5 (0-0.8) 10^3/ul Absolute Eos (auto) 0.0 (0-0.6) 10^3/ul Absolute Basos (auto) 0.0 (0-0.2) 10^3/ul Absolute Nucleated RBC 0.0 10^3/ul Nucleated RBC % 0.2 Microbiology and Other Data: Microbiology 09/14/19 04:13 Aerobic Blood Culture - Preliminary Blood Venous No Growth Day 1 Anaerobic Blood Culture - Preliminary No Growth Day 1 09/14/19 04:13 Aerobic Blood Culture - Preliminary Blood Venous No Growth Day 1 Anaerobic Blood Culture - Preliminary No Growth Day 1 Assess/Plan/Problems-Billing Assessment: This is a 79 year old female with a past medical history of CAD, HTN, HLD who was admitted 09/14/19 for pneumonia, likely viral. - Patient Problems (1) Pneumonia Current Visit: Yes Status: Acute Code(s): J18.9 - PNEUMONIA, UNSPECIFIED ORGANISM SNOMED Code(s): 927956079 Comment: -Negative for influenza. Chest x-ray clear, no leukocytosis. This is likely a viral pneumonia, though checking urine for legionella's and strep pneumo. If these are negative, then I will likely shorten the course of antibiotics, or stop them all together depending on how well she improves. -Spoke with nursing about titrating her off oxygen if possible. Currently on 2L via nasal cannula. -Continue axithromycin and ceftriaxone fow now. (2) Diabetes type 2, controlled Current Visit: Yes Status: Acute Code(s): E11.9 - TYPE 2 DIABETES MELLITUS WITHOUT COMPLICATIONS SNOMED Code(s): 46301321 Comment: -Continue glipizide and januvia. Ordered blood glucose for [facility] with sliding scale lispro. (3) CAD (coronary artery disease) Current Visit: Yes Status: Acute Code(s): I25.10 - ATHSCL HEART DISEASE OF [place] CORONARY ARTERY W/O ANG PCTRS SNOMED Code(s): 92305524 Comment: -No symptoms of ACS. Continue ASA, metoprolol. (4) HLD (hyperlipidemia) Current Visit: Yes Status: Acute Code(s): E78.5 - HYPERLIPIDEMIA, UNSPECIFIED SNOMED Code(s): 43582471 Comment: -Continue atorvastatin. (5) Hypothyroid Current Visit: Yes Status: Acute Code(s): E03.9 - HYPOTHYROIDISM, UNSPECIFIED SNOMED Code(s): 37684289 Comment: -Stable. Continue levothyroxine. (6) Ubdki-lf-iibuxxt kidney injury Current Visit: Yes Status: Acute Code(s): N17.9 - ACUTE KIDNEY FAILURE, UNSPECIFIED; N18.9 - CHRONIC KIDNEY DISEASE, UNSPECIFIED SNOMED Code(s): 072140257 Comment: -Had been gently rehydrated with 1L IV fluids. Will recheck BMP today. (7) DVT prophylaxis Current Visit: Yes Status: Acute Code(s): Z29.9 - ENCOUNTER FOR PROPHYLACTIC MEASURES, UNSPECIFIED SNOMED Code(s): 768480688 Comment: -Heparin SQ (8) DNR (do not resuscitate) Current Visit: Yes Status: Acute Status and Disposition: Disposition: Admit OBV to 4S. Condition: Fair Attending: Rachael Garcia
[2019-09-15 10:52] LABS: Hematocrit 36 % (35-47); Hemoglobin 11.8 g/dL (12.0-16.0); Mean Corpuscular HGB Conc 33 g/dL (31-36); Mean Corpuscular Hemoglobin 31 pg (27-31); Mean Corpuscular Volume 93 fL (80-97); Mean Platelet Volume 8.1 fL (7.4-10.4); Platelet Count 158 10^3/uL (150-450); Red Blood Count 3.86 10^6 /uL (3.70-4.87); Red Cell Distribution Width 15 % (10-15); White Blood Count 6.8 10^3/uL (3.5-10.8)
[2019-09-15 11:08] LABS: BUN/Creatinine Ratio 27.6 (8-20); Calcium 9.1 mg/dL (8.6-10.3); EGFR African American 38.7 (>60); Potassium 4.8 mmol/L (3.5-5.0)
[2019-09-15] MEDS: Insulin LISPRO* 1 UNITS UNIT SUBCUT SCH ×3 (13:39→20:55)
[2019-09-15] MEDS: Atorvastatin* 40 MG TAB PO SCH (21:07)
[2019-09-16] MEDS: Heparin VIAL(*) 5000 UNITS/ML VIAL (FIVE THOUSAND) SUBCUT SCH ×3 (05:46→21:13)
[2019-09-16] MEDS: cefTRIAXone(*) 1 GM in NS 0.9% 50 ML* 50 ML IVPB SCH (05:46)
[2019-09-16] MEDS: Levothyroxine TAB* 25 MCG TAB PO SCH (05:48)
[2019-09-16] MEDS: Insulin LISPRO* 1 UNITS UNIT SUBCUT SCH ×4 (07:25→21:02)
[2019-09-16] MEDS: Cholecalciferol TAB* 1000 UNITS PO SCH (08:07)
[2019-09-16] MEDS: Azithromycin TAB* 250 MG PO SCH (08:08)
[2019-09-16] MEDS: Aspirin 81 mg CHEW TAB* 81 MG TAB.CHEW PO SCH (08:08)
[2019-09-16] MEDS: Metoprolol Succinate XL TAB* 25 MG PO SCH (08:08)
[2019-09-16] MEDS: glipiZIDE TAB* 5 MG PO SCH ×2 (08:08→21:12)
[2019-09-16] MEDS: Potassium Chlor TAB* 20 MEQ TAB.ER PO SCH (08:09)
[2019-09-16] MEDS: CMC:SitaGLIPtin (NF) 25 MG TAB PO SCH (08:20)
--- NOTE | 2019-09-16 17:57 | PN ---
Subjective Date of Service: 09/16/19 Interval History: Seen sitting up at edge of bed. Denies shortness of breath, chest pain, palpitations, abdominal pain, nausea, vomiting. States she wants to go home and that she is feeling better. Family History: Unchanged from Admission Social History: Unchanged from Admission Past Medical History: Unchanged from Admission Objective Active Medications: Acetaminophen (Tylenol Tab*) 650 mg PO Q4H PRN PRN Reason: PAIN-MILD/TEMP >/= 100.4 Albuterol/Ipratropium (Duoneb (Albuterol 2.5 Mg/Ipratropium 0.5 Mg)) 1 neb INH Q4H PRN PRN Reason: SOB/WHEEZING Last Admin: 09/16/19 12:20 Dose: 1 neb Aspirin (Aspirin 81 Mg Chew Tab*) 81 mg PO QAM [facility] Last Admin: 09/16/19 08:08 Dose: 81 mg Atorvastatin Calcium (Lipitor*) 40 mg PO BEDTIME [facility] Last Admin: 09/15/19 21:07 Dose: 40 mg Azithromycin (Zithromax Tab*) 250 mg PO DAILY [facility] Last Admin: 09/16/19 08:08 Dose: 250 mg Cholecalciferol (Vitamin D Tab*) 1,000 units PO QAM [facility] Last Admin: 09/16/19 08:07 Dose: 1,000 units Dextrose (Dextrose 50% Vial 50 Ml*) 25 ml IV PUSH .FOR FS < 60 - SS PRN PRN Reason: FS < 60 Glipizide (Glucotrol Tab*) 10 mg PO BID [facility] Last Admin: 09/16/19 08:08 Dose: 10 mg Heparin Sodium (Porcine) (Heparin Vial(*)) 5,000 units SUBCUT Q8HR [facility] Last Admin: 09/16/19 16:04 Dose: 5,000 units Ceftriaxone Sodium 1 gm/ (Sodium Chloride) 50 mls @ 100 mls/hr IVPB Q24H [facility] Last Admin: 09/16/19 05:46 Dose: 100 mls/hr Insulin Human Lispro (Humalog*) 0 units SUBCUT ACHS [facility]; Protocol Last Admin: 09/16/19 16:06 Dose: Not Given Levothyroxine Sodium (Synthroid Tab*) 25 mcg PO QAM@0600 [facility] Last Admin: 09/16/19 05:48 Dose: 25 mcg Metoprolol Succinate (Toprol Xl Tab*) 25 mg PO QAM [facility] Last Admin: 09/16/19 08:08 Dose: 25 mg Ondansetron HCl (Zofran Inj*) 4 mg IV Q4H PRN PRN Reason: NAUSEA/VOMITING Potassium Chloride (Klor Con Er Tab*) 40 meq PO QAM [facility] Last Admin: 09/16/19 08:09 Dose: 40 meq Sitagliptin Phosphate (Januvia (Nf)) 50 mg PO [facility]; Protocol Last Admin: 09/16/19 08:20 Dose: 50 mg Vital Signs - 8 hr 09/16/19 09/16/19 09/16/19 11:15 11:22 12:22 Temperature 96.8 F Pulse Rate 85 78 Respiratory 22 16 Rate Blood Pressure 131/58 (mmHg) O2 Sat by Pulse 90 92 89 Oximetry Oxygen Devices in Use Now: Nasal Cannula Appearance: This is a well developed woman seen sitting up, no acute distress. Eyes: No Scleral Icterus, PERRLA Ears/Nose/Mouth/Throat: NL Teeth, Lips, Gums, Clear Oropharnyx, Mucous Membranes Moist Neck: NL Appearance and Movements; NL JVP, Trachea Midline Respiratory: Symmetrical Chest Expansion and Respiratory Effort, Clear to Auscultation Cardiovascular: NL Sounds; No Murmurs; No JVD, RRR, No Edema Abdominal: NL Sounds; No Tenderness; No Distention Lymphatic: No Cervical Adenopathy Extremities: No Edema, No Clubbing, Cyanosis Skin: No Rash or Ulcers, No Nodules or Sclerosis Neurological: Alert and Oriented x 3 Lines/Tubes/Other Access: Clean, Dry and Intact Peripheral IV Result Diagrams: 09/15/19 10:34 09/15/19 10:34 Additional Lab and Data: Lab Results 09/14/19 Range/Units 04:13 WBC 5.5 (3.5-10.8) 10^3/uL RBC 4.10 (3.70-4.87) 10^6 /uL Hgb 12.5 (12.0-16.0) g/dL Hct 38 (35-47) % MCV 92 (80-97) fL MCH 30 (27-31) pg MCHC 33 (31-36) g/dL RDW 15 (10-15) % Plt Count 153 (150-450) 10^3/uL MPV 8.2 (7.4-10.4) fL Neut % (Auto) 73.1 % Lymph % (Auto) 17.4 % Saline % (Auto) 8.7 % Eos % (Auto) 0.4 % Baso % (Auto) 0.4 % Absolute Neuts (auto) 4.0 (1.5-7.7) 10^3/ul Absolute Lymphs (auto) 1.0 (1.0-4.8) 10^3/ul Absolute Monos (auto) 0.5 (0-0.8) 10^3/ul Absolute Eos (auto) 0.0 (0-0.6) 10^3/ul Absolute Basos (auto) 0.0 (0-0.2) 10^3/ul Absolute Nucleated RBC 0.0 10^3/ul Nucleated RBC % 0.2 Microbiology and Other Data: Microbiology 09/14/19 04:13 Aerobic Blood Culture - Preliminary Blood Venous No Growth Day 1 Anaerobic Blood Culture - Preliminary No Growth Day 1 09/14/19 04:13 Aerobic Blood Culture - Preliminary Blood Venous No Growth Day 1 Anaerobic Blood Culture - Preliminary No Growth Day 1 Assess/Plan/Problems-Billing Assessment: This is a 79 year old female with a past medical history of CAD, HTN, HLD who was admitted 09/14/19 for pneumonia, likely viral. - Patient Problems (1) Pneumonia Current Visit: Yes Status: Acute Code(s): J18.9 - PNEUMONIA, UNSPECIFIED ORGANISM SNOMED Code(s): 500489859 Comment: -Negative for influenza. Chest x-ray clear, no leukocytosis. This is likely a viral pneumonia, though checking urine for legionella's and strep pneumo. If these are negative, then I will likely shorten the course of antibiotics, or stop them all together depending on how well she improves. -This morning was on 1L oxygen, however would drop to 88% at rest on room air. (2) Diabetes type 2, controlled Current Visit: Yes Status: Acute Code(s): E11.9 - TYPE 2 DIABETES MELLITUS WITHOUT COMPLICATIONS SNOMED Code(s): 91565796 Comment: -Continue glipizide and januvia. Ordered blood glucose for ACHS with sliding scale lispro. (3) CAD (coronary artery disease) Current Visit: Yes Status: Acute Code(s): I25.10 - ATHSCL HEART DISEASE OF [place] CORONARY ARTERY W/O ANG PCTRS SNOMED Code(s): 39315064 Comment: -No symptoms of ACS. Continue ASA, metoprolol. (4) HLD (hyperlipidemia) Current Visit: Yes Status: Acute Code(s): E78.5 - HYPERLIPIDEMIA, UNSPECIFIED SNOMED Code(s): 38968599 Comment: -Continue atorvastatin. (5) Hypothyroid Current Visit: Yes Status: Acute Code(s): E03.9 - HYPOTHYROIDISM, UNSPECIFIED SNOMED Code(s): 95573723 Comment: -Stable. Continue levothyroxine. (6) Bfrfu-ph-fiovrol kidney injury Current Visit: Yes Status: Acute Code(s): N17.9 - ACUTE KIDNEY FAILURE, UNSPECIFIED; N18.9 - CHRONIC KIDNEY DISEASE, UNSPECIFIED SNOMED Code(s): 303694842 Comment: Resolved (7) DVT prophylaxis Current Visit: Yes Status: Acute Code(s): Z29.9 - ENCOUNTER FOR PROPHYLACTIC MEASURES, UNSPECIFIED SNOMED Code(s): 139356420 Comment: -Heparin SQ (8) DNR (do not resuscitate) Current Visit: Yes Status: Acute Status and Disposition: Disposition: Admit OBV to . Condition: Fair Attending: Kimmie Louie
[2019-09-16] MEDS: Atorvastatin* 40 MG TAB PO SCH (21:11)
[2019-09-17] MEDS: Levothyroxine TAB* 25 MCG TAB PO SCH (06:00)
[2019-09-17] MEDS: Heparin VIAL(*) 5000 UNITS/ML VIAL (FIVE THOUSAND) SUBCUT SCH (06:01)
[2019-09-17] MEDS: CMC:SitaGLIPtin (NF) 25 MG TAB PO SCH (07:35)
[2019-09-17] MEDS: Cholecalciferol TAB* 1000 UNITS PO SCH (07:38)
[2019-09-17] MEDS: glipiZIDE TAB* 5 MG PO SCH (07:38)
[2019-09-17] MEDS: Potassium Chlor TAB* 20 MEQ TAB.ER PO SCH (07:38)
[2019-09-17] MEDS: Metoprolol Succinate XL TAB* 25 MG PO SCH (07:38)
[2019-09-17] MEDS: Aspirin 81 mg CHEW TAB* 81 MG TAB.CHEW PO SCH (07:39)
[2019-09-17] MEDS: Insulin LISPRO* 1 UNITS UNIT SUBCUT SCH (07:39)
[2019-09-17 07:43] VITALS: BP 127/56
--- NOTE | 2019-09-17 21:31 | DS ---
Amended report to enter cosigning physician. CC: Dr. Katy Lantigua* DISCHARGE SUMMARY: DATE OF ADMISSION: 09/14/19 DATE OF DISCHARGE: 09/17/19 PROVIDER: America Groves NP ATTENDING PHYSICIAN: Dr. Kimmie Louie* (dictated by America Groves NP). PRIMARY CARE PHYSICIAN: Dr. Katy Lantigua. PRIMARY DIAGNOSES: 1. Viral pneumonia. 2. Acute kidney injury. SECONDARY DIAGNOSES: 1. Type 2 diabetes. 2. Coronary artery disease. 3. Hyperlipidemia. 4. Hypothyroid. 5. Chronic kidney injury. PROCEDURES: None. STUDIES: Chest x-ray showed no evidence for active cardiopulmonary disease. EKG showed normal sinus rhythm. PERTINENT LAB DATA: Negative for influenza A or B. Hemoglobin 11.8, hematocrit 36. POC glucose of 139, creatinine 1.56, BUN 43. BUN/creatinine ratio 27.6. HISTORY OF PRESENT ILLNESS/HOSPITAL COURSE: This is a 79-year-old female with past medical history of diabetes type 2, coronary artery disease with 2 stents, hypertension, and hyperlipidemia, who came to the emergency room on 09/14/19, for a 7 day history of nonproductive cough, that was not associated with any myalgias, sore throat, shortness of breath at first, but did develop rhinorrhea and diarrhea. Her significant other who had been sick recently with similar symptoms that lasted 2 to 3 weeks; however, he did not have any fevers. The day of her coming to the emergency room, she had become more fatigued and weak, and developed a fever of 102.5, at home. In the emergency room, she was given antibiotics and DuoNeb. However, upon further thought because the patient has had no leukocytosis and the chest x-ray was clear, it was felt that this was more likely a viral pneumonia. The patient has no history of COPD or any pulmonary issues, which ruled out the possibility of a COPD exacerbation. She also presented to the emergency room with hypoxic respiratory failure and placed her on oxygen, which she responded to well. Chest x-ray was performed, EKG done, labs were drawn and was admitted into the hospital for observation. Her stay in the hospital was relatively unremarkable, each day with her oxygen demand lessening and lessening. Yesterday, we attempted to send the patient home as she had been only on 1 L of oxygen, however, when that was removed, she de-satted to 87% and then during her walking test without oxygen, she also de- satted to below 88%, and looked visibly short of breath though denied experiencing dyspnea. At that time, her lungs sounded wheezy throughout. The patient was started on prednisone this morning and though her lungs still sounded slightly wheezy, she was oxygenating better, appeared to have more energy, not having any fevers or tachycardia, had been normotensive and it was decided that even though her oxygen level was 91% on room air that was adequate for now and would be sent home with guaifenesin and albuterol inhaler. REVIEW OF SYSTEMS: An 11-point system review was performed, which was positive for dyspnea with exertion though denied any chest pain, shortness of breath at rash, fever, chills, abdominal pain, nausea, vomiting or issues moving her bowels or bladder. PHYSICAL EXAMINATION: Vital Signs: 97.4 Fahrenheit, 85 pulse, 19 respirations , 93% oxygen on room air, 127/53 blood pressure. General: This is a well- developed older woman, seen sitting at the edge of the bed, in no acute distress. HEENT: Conjunctivae pink and moist. PERRLA. EOMs intact. Mucous membranes moist. Oropharynx clear. Neck is supple. Cardiac: S1, S2 present. Heart rate is regular. No murmurs, gallops or rubs appreciated. Respiratory: Expiratory wheezing throughout bilateral lung maldonado on room air with no accessory muscle use noted. Abdomen: Soft, nontender, distended with positive bowel sounds x4. Musculoskeletal: No clubbing or cyanosis of the digits. Able to move all extremities. Neurological: No focal deficits appreciated. Sensation intact to light touch. Skin: No rashes or open areas appreciated. Psych: Alert and oriented x4. Thought content organized. DISCHARGE PLAN: Diet is to be a consistent carb. Activity is as tolerated. She is to return to the emergency room if she develops a fever of a 101 degrees or higher or has increasing shortness of breath or chest pain. PLAN FOR EACH CONDITION: 1. Viral pneumonia. She may use her albuterol inhaler 1 to 2 puffs every 4 hours as needed. A prescription was given for guaifenesin twice a day, however , I told her that she is welcome to use that if she feels that she needs it, otherwise, she does not have to. Prednisone 40 mg p.o. daily x4 tabs to complete a 5 days burst dosing. 2. Diabetes type 2. She is to continue her glipizide and Januvia. 3. Coronary artery disease. Had no symptoms of ACS during her stay. Continue aspirin and metoprolol. 4. Hyperlipidemia, which is stable. Continue atorvastatin. 5. Hypothyroidism, which is also stable. Continue levothyroxine. 6. Chronic kidney disease. She is to try to stay hydrated while recovering from this illness. MEDICATIONS: Continued medications: 1. Sitagliptin phosphate at 50 mg p.o. q.a.m. 2. Alendronate sodium 70 mg p.o. weekly. 3. Glipizide 10 mg p.o. b.i.d. 4. Simvastatin 80 mg p.o. b.i.d. 5. Potassium chloride 20 mEq p.o. q.a.m. 6. Metoprolol succinate 25 mg p.o. q.a.m. 7. Levothyroxine 25 mcg p.o. q.a.m. 8. Cinnamon bark 1000 mg p.o. b.i.d. 9. Cholecalciferol 1000 units p.o. q.a.m. 10. Aspirin 81 mg p.o. q.a.m. 11. Prednisone 40 mg p.o. daily x4 days. 12. Guaifenesin 600 mg p.o. b.i.d. 13. Albuterol inhaler 1 to 2 puffs inhalation q.4 hours p.r.n. shortness of breath. CONDITION UPON DISCHARGE: Fair. DISPOSITION: To home. TIME SPENT: Time spent on the patient is about 50 minutes with half of that spent [id number]. America Groves, YU [id number]/[facility] #: [id number] MTDD
== END 2019-09-17 12:40 | disposition home or self-care (01) | DRG 193 ==
LOC: ED 03:44 → MED 08:03 → OBSVTOIN 09-15 11:00
PROVIDERS: ADMIT Internal Medicine; ATTEND Internal Medicine
DX: J12.9 Viral pneumonia, unspecified (principal); J96.01 Acute respiratory failure with hypoxia; N17.9 Acute kidney failure, unspecified; E11.22 Type 2 diabetes mellitus with diabetic chronic kidney disease; I12.9 Hypertensive chronic kidney disease with stage 1 through stage 4 chronic kidney disease, or unspecified chronic kidney disease; N18.9 Chronic kidney disease, unspecified; I25.10 Atherosclerotic heart disease of native coronary artery without angina pectoris; E78.5 Hyperlipidemia, unspecified; E03.9 Hypothyroidism, unspecified; E11.51 Type 2 diabetes mellitus with diabetic peripheral angiopathy without gangrene; Z66 Do not resuscitate; G90.01 Carotid sinus syncope; R29.810 Facial weakness; N13.5 Crossing vessel and stricture of ureter without hydronephrosis; Z95.5 Presence of coronary angioplasty implant and graft; Z79.84 Long term (current) use of oral hypoglycemic drugs; Z79.82 Long term (current) use of aspirin; Z79.899 Other long term (current) drug therapy; Z88.8 Allergy status to other drugs, medicaments and biological substances; Z82.49 Family history of ischemic heart disease and other diseases of the circulatory system; Z83.3 Family history of diabetes mellitus; Z87.891 Personal history of nicotine dependence
CPT/HCPCS: 36415; 71046; 80048; 80053; 83605; 83880; 84484; 85025; 85027; 85610; 86140; 87040; 87899; 93005; 96365; 96375; 99284; A9270-GY; G0378; J0456; J0696; J1644; J7512

== ENCOUNTER 2023-12-13 00:23 | Inpatient (IN) ==
[2023-12-13] MEDS: Acetaminophen IV 1 GM/100ML 750 MG/75 ML BAG IV ONE (01:37)
[2023-12-13] MEDS: fentaNYL 100 mcg/2 ml 50 MCG/ML VIAL IV SLOW PU ONE ×2 (03:59→04:51)
[2023-12-13] MEDS ORDERED: Magnesium Hydroxide LIQ 30 ML UDC PO PRN (05:40)
[2023-12-13] MEDS ORDERED: Senna TAB 8.6 mg TAB PO PRN (05:40)
[2023-12-13] MEDS ORDERED: Polyethylene Glycol 3350 17 GM PACKET PO PRN (05:40)
[2023-12-13] MEDS ORDERED: Ondansetron ODT 4 mg TAB 4 MG TAB SL PRN (05:43)
[2023-12-13] MEDS: Morphine ORAL CONCENTRATE 5 MG/0.25 ML ORAL.SYRIN PO PRN ×2 (06:06→18:09)
[2023-12-13 22:09] VITALS: BP 98/50
== END 2023-12-14 18:35 | disposition expired | DRG 536 ==
LOC: ED 00:23 → SUATTDRO 05:40 → EDHOLD 05:40 → SSU 07:46
PROVIDERS: ADMIT Student in an Organized Health Care Education/Training Program; ATTEND Internal Medicine